=== PATIENT | female | born 1990 | race American Indian/Alaskan Native ===

== ENCOUNTER → 2020-04-01 | Outpatient (CLI) | payer OTHER | LOC: LAB 03-31 10:32 | PROVIDERS: ATTEND Family Medicine | DX: U07.1 COVID-19 (principal) ==

== ENCOUNTER → 2020-07-04 | Outpatient (CLI) | payer OTHER | LOC: ULTRA 10:05 | PROVIDERS: ATTEND Nurse Practitioner | DX: I82.401 Acute embolism and thrombosis of unspecified deep veins of right lower extremity (principal); M79.89 Other specified soft tissue disorders ==